=== PATIENT | male | born 1980 | race Caucasian/White ===

== ENCOUNTER 2021-02-01 21:53 | Emergency (ER) | payer OTHER ==
[~2021-02-01] VITALS: Ht 175.3 cm; Wt 70.3 kg
[2021-02-01 22:50] VITALS: BP 116/73
== END 2021-02-02 00:57 | disposition home or self-care (01) ==
LOC: ER 21:53
DX: S09.90XA Unspecified injury of head, initial encounter (principal); M25.522 Pain in left elbow; Z60.2 Problems related to living alone; V49.69XA Unspecified car occupant injured in collision with other motor vehicles in traffic accident, initial encounter; Y93.89 Activity, other specified; Y92.413 State road as the place of occurrence of the external cause; Y99.8 Other external cause status
CPT/HCPCS: 70450-TC; 73080-TC